=== PATIENT | male | born 1965 | race Two or more races ===

== ENCOUNTER → 2023-06-18 14:29 | Outpatient (REF) | payer MEDICAID, SELFPAY ==
--- NOTE | 2023-06-18 14:33 | HM_ITS ---
* Total monitoring time 3 days. * Underlying rhythm is sinus average rate of 74/Min. Range 49 to 111/Min. * Rare ventricular ectopy. [place] of 0.3%. Some of these could be supraventricular ectopy. * No significant pauses or AV blocks. * Palpitations in diary correlates with sinus rhythm/ectopy. MTDD
== END ==
LOC: HO.CARD 14:29
PROVIDERS: PCP Internal Medicine; Visit Provider Internal Medicine
DX: R00.2 Palpitations (principal)
CPT/HCPCS: 93242

== ENCOUNTER → 2023-06-18 14:33 | Outpatient (BNV) | payer MEDICAID, SELFPAY | PROVIDERS: PCP Internal Medicine; Visit Provider Internal Medicine | DX: R00.1 Bradycardia, unspecified (principal) | CPT/HCPCS: 93244 ==

== ENCOUNTER 2025-01-09 14:33 | Outpatient (AMB) | payer OTHER, SELFPAY ==
--- NOTE | 2025-01-09 14:34 | A.OFFPC_ITS ---
Vital Signs 01/09/25 14:36 Height 5 ft 4.29 in Weight 156 lb 4 oz BMI 26.6 BP 121/72 Blood Pressure Location Rt brachial Position Sitting Pulse 94 Pulse Source Pulse Oximeter Temp 97.3 F Temp Source Temporal Artery Scan Pulse Oximetry (%) 97 Oxygen Delivery Method Room Air Intake Visit Reasons: establish care House Mother Required: No Accompanied by: Self / Same As Patient Allergies No Known Allergies Allergy (Verified 01/09/25 14:56) Medication List - Last Reconciled 01/09/25 by Stella Francois PA-C ezetimibe 10 mg PO DAILY ibuprofen 600 mg PO BID lisinopril 5 mg PO DAILY rosuvastatin 10 mg PO BEDTIME tramadol 50 mg PO BID Tobacco use date assessed: 01/09/25 Dental Screening Dental Screen Date: 01/09/25 Did you have a dental visit in the last 12 months?: Yes HPI establish care HPI Details The patient is a 59-year-old male presenting for new patient appointment as he was a patient of Dr. Luna presenting with chronic pain and cardiovascular evaluation. The patient has a history of degenerative disc disease, causing pain radiating to the shoulders and persistent hand pain, particularly affecting his right thumb. 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 He manages his pain with ibuprofen 600 mg twice daily and tramadol as needed, depending on pain severity. The patient has been diagnosed with essential hypertension and hyperlipidemia, managed with lisinopril 5 mg, rosuvastatin 10 mg, and ezetimibe 10 mg. He has not had blood work in the past three years, despite a history of regular monitoring while living in [place]. During the examination, a possible heart murmur was detected, prompting consideration for an echocardiogram to establish a baseline. 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 - Exercise: Practices yoga and performs hand exercises. - Dietary Habits: Does not consume red m eat, pork, or chicken; takes iron supplements. [facility] Medical History (Updated 01/09/25 @ 17:00 by Stella Francois PA-C) Encounter for preventive care Hyperlipidemia Hypertension Heart murmur Chronic pain Pain of right thumb Family History Mother Cardiovascular disease Diabetes Father Thyroid condition Social History Housing: House Patient Tobacco Use Status: Former Tobacco user service: No Current occupational status: employed Cognitive needs: No Hearing needs: No Vision needs: Yes (rx glasses) Questionnaire PHQ-9 Over the last 2 weeks, how often have you been bothered by any of the following problems? 1. Little interest or pleasure in doing things: not at all 2. Feeling down, depressed, or hopeless: not at all 3. Trouble falling or staying asleep, or sleeping too much: not at all 4. Feeling tired or having little energy: not at all 5. Poor appetite or overeating: not at all 6. Feeling bad about yourself - or that you are a failure or have let yourself or your family down: not at all 7. Trouble concentrating on things, such as reading the newspaper or watching television: not at all 8. Moving or speaking so slowly that other people could have noticed. Or the opposite - being so fidgety or restless that you have been moving around a lot more than usual: not at all 9. Thoughts that you would be better off or of hurting yourself in some way: not at all Total score: 0 Depression Screening Interpretation: Negative Depression Screening Done: Yes 10410 - PHQ-9 Billing: Yes Source: Developed by Drs. Chris Blas, Jayshree Davis, Nehemias Mathis and colleagues, with an educational soledad from [employer]. Thrive Questionnaire Date Thrive assessed: 01/09/25 I am a: Patient What is your living situation today?: I have a steady place to live Within the past 12 months, did the food you bought not last and you didn't have the money to get more?: Never true Within the past 12 months, did you worry whether your food would run out before you got money to buy more?: Never true Do you have trouble paying for medicines?: No Do you have trouble getting transportation to medical appointments?: Yes Do you have trouble paying your heating and electricity bill?: No Do you have trouble taking care of your child, family member or friend?: No Do you have trouble with day-to-day activities such as bathing, preparing meals, shopping, managing finances, etc.?: No Are you currently unemployed and looking for a job?: No Are you interested in more education?: No THRIVE Score: 1 AUDIT C Alcohol Use Questionnaire (AUDIT-C) 1. How often do you have a drink containing alcohol?: Monthly or less 2. How many drinks containing alcohol do you have on a typical day when you are drinking?: 1 or 2 3. How often do you have six or more drinks on one occasion?: Never Total Score: 1 Score Reviewed/Action Taken: No REHANA-7 AMB Questionnaire REHANA-7 Date REHANA - 7 assessed: 01/09/25 Feeling nervous, anxious, or on edge: 0 = Not at all Not being able to stop or control worryin = Not at all Worrying too much about different things: 0 = Not at all Trouble relaxin = Not at all Being so restless that it is hard to sit still: 0 = Not at all Becoming easily annoyed or irritable: 0 = Not at all Feeling afraid as if something awful might happen: 0 = Not at all Total REHANA-7 score (0-4 normal; 5-9 mild; 10-14 moderate; 15-21 severe): 0 Source: Developed by Drs. Chris Blas, Jayshree Davis, Nehemias Mathis and colleagues, with an educational soledad from [employer]. REHANA-7 Assessment Billing REHANA-7 Assessment Tool: REHANA-7 Assessment 04830 Review of Systems Const Details: - Musculoskeletal: Reports chronic pain in hands and shoulders. - Cardiovascular: Denies chest pain, dyspnea, or orthopnea. All systems reviewed & are unremarkable except as noted in HPI and below Physical exam (Primary Care) Vital Signs: Last Vital Signs Temp 97.3 F 01/09/25 14:36 Pulse 94 01/09/25 14:36 BP 121/72 01/09/25 14:36 Pulse Ox 97 01/09/25 14:36 Oxygen Delivery Method Room Air 01/09/25 14:36 Care Plan Goal for BP management: <140/90 at Goal BMI result Body Mass Index 26.6 BMI Assessment/Plan discussion: High BMI High, discussed plan: lifestyle, weight reduction, dietary, physical activity, alcohol moderation and other Tobacco/Smoking Status: Tobacco use Status Tobacco use date assessed 01/09/25 01/09/25 14:44 Patient Tobacco Use Status Former Tobacco user 01/09/25 14:44 PHQ-9: PHQ-9 Score PHQ-9: Total score 0 01/09/25 14:57 Depression Screening Interpretation: Negative Thrive Assessment: Date of Thrive Assessment Date Thrive assessed 01/09/25 01/09/25 14:44 Const Other: Appearance: Alert. Oriented X3. No acute distress. Head: Normal external exam. Normocephalic. Atraumatic. Eyes: Pupils are equal, round, and reactive to light. Extraocular movements intact. Conjunctiva and sclera normal. Eyelids normal. Ears: External auditory canal normal. Tympanic membranes normal. Throat: Pharynx normal. Uvula midline. Moist mucous membranes. Neck: Normal inspection. Neck supple. Full range of motion. No adenopathy. Thyroid Normal. No meningeal signs. No neck mass noted. Cardiovascular: Normal heart rate and rhythm. Heart sound normal. Slight murmur noted. Pulses normal throughout. Respiratory: No respiratory distress. Painless inspiration. Breath sounds normal. No wheezes/rales/rhonchi noted. Chest nontender. No accessory muscle usage noted or decreased air movement noted. Abdomen: Soft and nontender. Bowel sounds normal in all 4 quadrants. No distention noted. No organomegaly noted. No visible injury noted. Back: No costovertebral angle tenderness. Full range of motion noted. Skin: Skin warm and dry. Normal skin color. Normal skin turgor. No rashes/lesions/lacerations noted. Extremities: No lower extremity edema. Extremities exhibit normal range of motion. Extremities nontender. Neuro: Oriented X 3. No motor deficit. No sensory deficit. Reflexes normal. Office Procedures Flu Questionnaire Does the patient have a severe egg allergy?: No Does the patient have severe life threatening allergies?: No Does the patient have a fever or illness today?: No Has the patient ever had Guillain-[place] Syndrome?: No Has the patient ever had any past reaction to a flu shot?: No Immunizations Fluarix [id number] (PF) 45 mcg (15 mcg x 3)/0.5 mL IM syringe Performing Provider: Stella Francois PA-C [facility] Documented (not given) by: Yahaira Matthews CMA on 01/09/25 14:46 Reason Not Given: Received Previously Coding Level of Care Code New Pt Level 4 (40059) New Pt Prev Care 40-64y(52379) Diagnoses Chronic pain G89.29 Hypertension I10 Hyperlipidemia E78.5 Heart murmur R01.1 Encounter for preventive care Z00.00 Additional Codes REHANA-7 Assessment Billing - REHANA-7 Assessment Tool: REHANA-7 Assessment 82449 ([id number]) PHQ-9 - 27535 - PHQ-9 Billing: Yes ([id number]) Assessment & Plan Assessment & Plan (1) Chronic pain: Code(s): G89.29 - Other chronic pain Category: Medical Plan: The patient will be placed on a pain management contract, reducing tramadol to once daily, with regular drug urine screens and pill counts. A referral to an orthopedist has been made for further evaluation of hand pain, and the patient is encouraged to continue yoga and hand exercises. (2) Hypertension: Code(s): I10 - Essential (primary) hypertension Category: Medical Plan: The patient's blood pressure is currently managed with lisinopril 5 mg daily, and no changes to this regimen were discussed during the visit. (3) Hyperlipidemia: Code(s): E78.5 - Hyperlipidemia, unspecified Category: Medical Plan: The patient continues on rosuvastatin 10 mg and ezetimibe 10 mg for hyperlipidemia management, with plans for comprehensive blood work to monitor lipid levels. (4) Heart murmur: Code(s): R01.1 - Cardiac murmur, unspecified Category: Medical Plan: An echocardiogram is recommended to evaluate the detected heart murmur and establish a baseline for future comparison. (5) Encounter for preventive care: Code(s): Z00.00 - Encounter for general adult medical examination without abnormal findings Category: Medical Plan: Comprehensive blood work is ordered, including CBC, CMP, cholesterol panel, and other relevant tests, to assess overall health and monitor chronic conditions. Plan Plan Patient was informed and verbally consented to the use of an ambient scribe for clinic note documentation during this visit. 1. Chronic Pain The patient will be placed on a pain management contract, reducing tramadol to once daily, with regular drug urine screens and pill counts. A referral to an orthopedist has been made for further evaluation of hand pain, and the patient is encouraged to continue yoga and hand exercises. 2. Essential Hypertension The patient's blood pressure is currently managed with lisinopril 5 mg daily, and no changes to this regimen were discussed during the visit. 3. Hyperlipidemia The patient continues on rosuvastatin 10 mg and ezetimibe 10 mg for hyperlipidemia management, with plans for comprehensive blood work to monitor lipid levels. 4. Possible Heart Murmur An echocardiogram is recommended to evaluate the detected heart murmur and establish a baseline for future comparison. 5. Preventative Care Comprehensive blood work is ordered, including CBC, CMP, cholesterol panel, and other relevant tests, to assess overall health and monitor chronic conditions. During the visit, I discussed the importance of managing chronic pain through a structured pain management contract, which includes reducing tramadol usage and regular monitoring through drug urine screens and pill counts. I explained the need for an echocardiogram to evaluate the detected heart murmur and emphasized the importance of comprehensive blood work to monitor the patient's chronic conditions. Orders: Orders C Reactive Protein Today Z00.00 - Encounter for general adult medical examination without abnormal findings Vitamin D 25-OH Total Today Z00.00 - Encounter for general adult medical examination without abnormal findings UA CC w/rflx Micro + Cult Today Z00.00 - Encounter for general adult medical examination without abnormal findings Drug Screen Urine Today G89.29 - Other chronic pain Ferritin Today D64.9 - Anemia, unspecified Influenza 2230-0032 Immunization Today Z23 - Encounter for immunization Complete Blood Count Auto Diff Today Z00.00 - Encounter for general adult medical examination without abnormal findings Comprehensive [place]. Panel Fast Today Z00.00 - Encounter for general adult medical examination without abnormal findings Hemoglobin A1c Today Z00.00 - Encounter for general adult medical examination without abnormal findings Lipid Panel Today Z00.00 - Encounter for general adult medical examination without abnormal findings Magnesium Today Z00.00 - Encounter for general adult medical examination without abnormal findings Liver Panel Today Z00.00 - Encounter for general adult medical examination without abnormal findings Vitamin B12 and Folate Today Z00.00 - Encounter for general adult medical examination without abnormal findings TSH reflex Free T4 Today Z00.00 - Encounter for general adult medical examination without abnormal findings PSA,Total (Free>4and<10) Today Z00.00 - Encounter for general adult medical examination without abnormal findings CA echo transthoracic complete Today R01.1 - Cardiac murmur, unspecified IRON PROFILE Today D64.9 - Anemia, unspecified Testosterone, Free/Total Today Z00.00 - Encounter for general adult medical examination without abnormal findings DHEA Sulfate Today Z00.00 - Encounter for general adult medical examination without abnormal findings Dihydrotestosterone Today Z00.00 - Encounter for general adult medical examination without abnormal findings Referrals Pain Management Referral G89.29 - Other chronic pain Orthopedics Referral M79.644 - Pain in right finger(s) Patient Instructions: - Follow the pain management contract, including taking tramadol once daily and attending regular appointments for drug urine screens and pill counts. - Attend the scheduled appointment with the orthopedist for hand pain evaluation. - Continue practicing yoga and hand exercises to manage pain. - Complete the comprehensive blood work as ordered, ensuring to fast as required. - Schedule and attend the echocardiogram to evaluate the heart murmur.
[2025-01-09 14:36] VITALS: BP 121/72; PULSE 94; TEMP 36.3; O2SAT 97; BMI 26.6
--- OUTSIDE RECORDS SUMMARY | 2025-01-09 17:44 | XMS_ITS | Patient Health Record ---
Author Organization [facility] Address [address] [facility] [place] [address] Care Team Providers Care Aviation Engineer Name Role Phone Shira Hester Primary Care Provider Unavailab Derrek Abraham Unavailable [phone] Reason For Referral No Information Medications Medication SIG (Take, Route, Frequency, Duration) Notes Start Date End Date Status Pravastatin Sodium 40 MG 1 tablet Orally Once a day Active Lisinopril 10 MG 1 tablet Orally Once a day Active Ibuprofen 600 MG 1 tablet with food o r milk Orally Three times a day Active Social History Tobacco Use: Social History Observation Description Date Details (start date - stop date) Never Smoker NA - NA Tobacco Use/Smoking Question Answer Notes Are you a nonsmoker Alcohol Screen Question Answer Notes Did you have a drink contain ing alcohol in the past year? Yes Points 4 Interpretation Positive How often did you have 6 or more drinks on one occasion in the past year? Never (0 point) How many drinks did you have on a typical day when you were drinking in the past year? 1 or 2 drinks (0 point) How often did you have a dri nk containing alcohol in the past year? 4 or more times a week (4 points) Problems Problem Type SNOMED Code ICD Code Onset Dates Problem Status W/U Status Risk Notes Problem Carpal tunnel syndrome (17295915) Carpal tunnel syndrome, bilateral upper limbs (G56.03) Active confirmed Problem Lesion of ulnar nerve ([id number]) Lesion of ulnar nerve, bilateral upper limbs (G56.23) Active confirmed Plan Of Treatment No Information Insurance Providers Payer Name Payer Address Payer Phone Subscriber Number Group Number Insured Name Patient Relationship to Insured Coverage Start Date Coverage End Date [facility] [address] LEESA Guerrero [id number] Mark Altamirano Self - patient is the insured Medical (General) History Medical History History ICD Code htn hld kidney stones
== END 2025-01-09 15:21 | disposition home or self-care (01) ==
LOC: HO.HMCSH 14:33
PROVIDERS: PCP Physician Assistant Medical; Visit Provider Physician Assistant Medical
DX: Z00.00 Encounter for general adult medical examination without abnormal findings (principal); G89.29 Other chronic pain; I10 Essential (primary) hypertension; E78.5 Hyperlipidemia, unspecified; R01.1 Cardiac murmur, unspecified; Z23 Encounter for immunization

== ENCOUNTER → 2025-01-09 14:33 | Outpatient (BNVA) | payer OTHER, SELFPAY | PROVIDERS: PCP Physician Assistant Medical; Visit Provider Physician Assistant Medical | DX: Z00.00 Encounter for general adult medical examination without abnormal findings (principal); I10 Essential (primary) hypertension; E78.5 Hyperlipidemia, unspecified; G89.29 Other chronic pain; D64.9 Anemia, unspecified; M79.644 Pain in right finger(s) | CPT/HCPCS: 96127; 99202; 99386 ==

== ENCOUNTER 2025-01-11 06:19 | Outpatient (REF) | payer OTHER, SELFPAY ==
--- OUTSIDE RECORDS SUMMARY | 2025-01-11 06:23 | XMS_ITS | Patient Health Record ---
Author Organization [facility] Address [address] [facility] [address] [address] [facility] [address] [facility] [address] [place] [address] Care Team Providers Care Radio Commentator Name Role Phone Shira Hester Primary Care Provider Unavailab Derrek Abraham Unavailable [phone] Reason For Referral No Information Medications Medication [...] Status Risk Notes Problem Carpal tunnel syndrome (57418413) Carpal tunnel syndrome, bilateral upper limbs (G56.03) Active confirmed Problem Lesion of ulnar nerve (573691027) Lesion of ulnar nerve, bilateral upper limbs (G56.23) Active confirmed Plan Of Treatment No Information Insurance Providers Payer Name Payer Address Payer Phone Subscriber Number Group Number Insured Name Patient Relationship to Insured Coverage Start Date Coverage End Date [facility] [address] LEESA Guerrero [id number] Mark Altamirano Self - patient is the insured Medical (General) History Medical History History ICD Code htn hld kidney stones
[2025-01-11 10:19] LABS: MANUAL DIFF FLAG NO
[2025-01-11 10:31] LABS: Hematocrit 39.4 % (42.0-52.0); Hemoglobin 13.9 g/dl (14.0-18.0); Imm Gran Abs Auto 0.02 X10*3/uL (0.00-0.03); Imm Gran Pct Auto 0.4 % (0.0-0.4); Lymphocytes Absolute Auto 2.0 X10*3/uL (1.2-4.9); Mean Corpuscular HGB Conc 35.3 g/dl (31.0-36.0); Mean Corpuscular Hemoglobin 29.7 pg (27.0-33.0); Mean Corpuscular Volume 84.2 fL (80.0-98.0); NRBC Abs Auto 0.000 X10*3/uL (0.0-0.012); NRBC Pct Auto 0.0 /100WBC (0.0-0.2); Platelet Count 280 X10*3/uL (160-400); Red Blood Count 4.68 X10*6/uL (4.60-5.80); White Blood Count 5.0 X10*3/uL (4.8-10.8)
[2025-01-11 10:31] LABS: Appearance Urine Clear; Glucose Urine UA Negative (Negative); PH 8.5 (5.0-9.0); Specific Gravity - Urine 1.015 (1.005-1.025); UMIC TRIGGER UACC YES
[2025-01-11 10:36] LABS: Cannabinoid Screen Urine POSITIVE (Not Detect)
[2025-01-11 10:45] LABS: Total Hemoglobin (HGBA1C) 3567.6437 umol/L
[2025-01-11 11:11] LABS: PSA,Total (Free>4and<10) 0.89 ng/mL (0.00-4.00)
[2025-01-11 11:23] LABS: Alanine Aminotransferase 19 U/L (0-40); Albumin Level 5.0 g/dL (3.5-5.0); Alkaline Phosphatase 55 U/L (39-117); Anion Gap 11 (12-20); Aspartate Amino Transferase 28 U/L (5-37); Blood Urea Nitrogen 10 mg/dL (9-16); Calcium 9.4 mg/dL (8.4-10.2); Carbon Dioxide 29 mmol/L (22-29); Chloride 103 mmol/L (96-108); Cholesterol 144 mg/dL (<200); Estimated Glomerular Filt Rate > 60; Ferritin 113 ng/mL (20-250); HDL Cholesterol 36 mg/dL (>40); Iron 120 mcg/dL (45-160); Magnesium 2.1 mg/dL (1.6-2.6); Percent Iron Saturation 40 % (15-50); Potassium 4.2 mmol/L (3.3-5.1); Sodium 139 mmol/L (135-145); Total Iron Binding Capacity 300 mcg/dL (228-428); Total Protein 7.8 g/dL (6.5-8.0); Triglycerides 151 mg/dL (<150); Unsaturated Iron Binding 180 ug/dL
[2025-01-11 11:25] LABS: Folate 15.0 ng/mL (> or = 4.0); Vitamin B12 816 pg/mL (200-900)
[2025-01-18 17:44] LABS: Testosterone, Free 78.1 pg/mL (35.0-155.0)
== END 2025-01-11 06:20 | disposition home or self-care (01) ==
LOC: HO.HMGCLDS 06:19
PROVIDERS: PCP Physician Assistant Medical; Visit Provider Physician Assistant Medical
DX: Z00.00 Encounter for general adult medical examination without abnormal findings (principal); D64.9 Anemia, unspecified; G89.29 Other chronic pain
CPT/HCPCS: 80053; 80061; 80076; 80307; 81001; 82248; 82306; 82607; 82627; 82642; 82728; 82746; 83036; 83540; 83735; 84153; 84402; 84403; 84443; 85025; 86140

== ENCOUNTER 2025-02-06 14:52 | Outpatient (AMB) | payer OTHER, SELFPAY ==
[2025-02-06 14:56] VITALS: BP 138/82; PULSE 96; TEMP 36.6; O2SAT 96; BMI 26.6
--- NOTE | 2025-02-06 14:56 | A.OFFPC_ITS ---
Vital Signs 02/06/25 14:56 Height 5 ft 4.45 in Weight 157 lb 6 oz BMI 26.6 BP 138/82 Blood Pressure Location Rt brachial Position Sitting Pulse 96 Pulse Source Pulse Oximeter Temp 97.8 F Temp Source Temporal Artery Scan Pulse Oximetry (%) 96 Oxygen Delivery Method Room Air Intake Visit Reasons: 1 month follow up Api Architect Required: No Accompanied by: Self / Same As Patient Allergies No Known Allergies Allergy (Verified 02/06/25 15:29) Medication List - Last Reconciled 02/06/25 by Stella Francois PA-C ezetimibe 10 mg PO DAILY ibuprofen 600 mg PO BID lisinopril 5 mg PO DAILY rosuvastatin 10 mg PO BEDTIME tramadol 50 mg PO DAILY Tobacco use date assessed: 02/06/25 Dental Screening Dental Screen Date: 02/06/25 Did you have a dental visit in the last 12 months?: Yes HPI 1 month follow up HPI Details The patient is a 59-year-old male presenting with hypertension and chronic pain management. The patient reports a history of hypertension, with current blood pressure readings slightly elevated at 138/82 mmHg. He is currently on lisinopril 5 mg daily taking as prescribed. He has been on tramadol for chronic pain, initially taking it three times a day, but now reduced to daily and as needed due to adequate pain control. The patient has a history of a heart murmur, which was noted during auscultation but deemed not significant at this time. Patient has echocardiogram ordered as an outpatient. [facility] Medical History Encounter for preventive care Hyperlipidemia Hypertension Heart murmur Chronic pain Pain of right thumb Family History Mother Cardiovascular disease Diabetes Father Thyroid condition Social History Housing: House Patient Tobacco Use Status: Former Tobacco user service: No Current occupational status: employed Cognitive needs: No Hearing needs: No Vision needs: Yes (rx glasses) Questionnaire PHQ-9 Over the last 2 weeks, how often have you been bothered by any of the following problems? 1. Little interest or pleasure in doing things: not at all 2. Feeling down, depressed, or hopeless: not at all 3. Trouble falling or staying asleep, or sleeping too much: not at all 4. Feeling tired or having little energy: not at all 5. Poor appetite or overeating: not at all 6. Feeling bad about yourself - or that you are a failure or have let yourself or your family down: not at all 7. Trouble concentrating on things, such as reading the newspaper or watching television: not at all 8. Moving or speaking so slowly that other people could have noticed. Or the opposite - being so fidgety or restless that you have been moving around a lot more than usual: not at all 9. Thoughts that you would be better off or of hurting yourself in some way: not at all Total score: 0 Depression Screening Interpretation: Negative Depression Screening Done: Yes 72931 - PHQ-9 Billing: Yes Source: Developed by Drs. Chris Blas, Jayshree Davis, Nehemias Mathis and colleagues, with an educational soledad from [employer]. Thrive Questionnaire Date Thrive assessed: 02/06/25 I am a: Patient What is your living situation today?: I have a steady place to live Within the past 12 months, did the food you bought not last and you didn't have the money to get more?: Never true Within the past 12 months, did you worry whether your food would run out before you got money to buy more?: Never true Do you have trouble paying for medicines?: No Do you have trouble getting transportation to medical appointments?: Yes Do you have trouble paying your heating and electricity bill?: No Do you have trouble taking care of your child, family member or friend?: No Do you have trouble with day-to-day activities such as bathing, preparing meals, shopping, managing finances, etc.?: No Are you currently unemployed and looking for a job?: No Are you interested in more education?: No THRIVE Score: 1 AUDIT C Alcohol Use Questionnaire (AUDIT-C) 1. How often do you have a drink containing alcohol?: Monthly or less 2. How many drinks containing alcohol do you have on a typical day when you are drinking?: 1 or 2 3. How often do you have six or more drinks on one occasion?: Never Total Score: 1 Score Reviewed/Action Taken: No REHANA-7 AMB Questionnaire REHANA-7 Date REHANA - 7 assessed: 02/06/25 Feeling nervous, anxious, or on edge: 0 = Not at all Not being able to stop or control worryin = Not at all Worrying too much about different things: 0 = Not at all Trouble relaxin = Not at all Being so restless that it is hard to sit still: 0 = Not at all Becoming easily annoyed or irritable: 0 = Not at all Feeling afraid as if something awful might happen: 0 = Not at all Total RHEANA-7 score (0-4 normal; 5-9 mild; 10-14 moderate; 15-21 severe): 0 Source: Developed by Drs. Chris Blas, Jayshree Davis, Nehemias Mathis and colleagues, with an educational soledad from [employer]. REHANA-7 Assessment Billing REHANA-7 Assessment Tool: REHANA-7 Assessment 66949 Review of Systems Const Details: - Cardiovascular: Reports hypertension. Denies chest pain or palpitations. - Musculoskeletal: Reports chronic pain, managed with tramadol as needed. All systems reviewed & are unremarkable except as noted in HPI and below Physical exam (Primary Care) Vital Signs: Last Vital Signs Temp 97.8 F 02/06/25 14:56 Pulse 96 02/06/25 14:56 BP 141/71 H 02/06/25 14:56 Pulse Ox 96 02/06/25 14:56 Oxygen Delivery Method Room Air 02/06/25 14:56 Care Plan Goal for BP management: <140/90 BMI result Body Mass Index 26.6 BMI Assessment/Plan discussion: High BMI High, discussed plan: lifestyle, weight reduction, dietary, physical activity, alcohol moderation and other Tobacco/Smoking Status: Tobacco use Status Tobacco use date assessed 02/06/25 02/06/25 14:57 Patient Tobacco Use Status Former Tobacco user 02/06/25 14:56 PHQ-9: PHQ-9 Score PHQ-9: Total score 0 02/06/25 15:03 Depression Screening Interpretation: Negative Thrive Assessment: Date of Thrive Assessment Date Thrive assessed 02/06/25 02/06/25 14:57 Const Other: Appearance: Alert. Oriented X3. No acute distress. Head: Normal external exam. Normocephalic. Atraumatic. Eyes: Pupils are equal, round, and reactive to light. Extraocular movements intact. Conjunctiva and sclera normal. Eyelids normal. Throat: Pharynx normal. Uvula midline. Moist mucous membranes. Neck: Normal inspection. Neck supple. Full range of motion. Cardiovascular: Normal heart rate and rhythm. Heart sound normal. Slight murmur noted. Pulses normal throughout. Respiratory: No respiratory distress. Painless inspiration. Back: Full range of motion noted. Skin: Skin warm and dry. Normal skin color. Extremities: Extremities exhibit normal range of motion. Office Procedures Flu Questionnaire Does the patient have a severe egg allergy?: No Does the patient have severe life threatening allergies?: No Does the patient have a fever or illness today?: No Has the patient ever had Guillain-[place] Syndrome?: No Has the patient ever had any past reaction to a flu shot?: No Office Meds naloxone 4 mg/actuation nasal spray Performing Provider: Stella Francois PA-C Performing Location: [facility] Administered by: Stella Francois PA-C on 02/06/25 15:41 Dose Route Admin Location Dispensed Lot Number Expiration Date [facility] Senior Master Scheduler 4 mg intranasal 1 ea Total Dispensed Waste 1 ea 0 % Comments: to take home due to on chronic pain medications Immunizations Fluarix [id number] (PF) 45 mcg (15 mcg x 3)/0.5 mL IM syringe Performing Provider: Stella Francois PA-C Performing Location: [facility] Adult Primary [facility] Documented (not given) by: Yahaira Matthews CMA on 02/06/25 15:06 Reason Not Given: Received Previously Coding Level of Care Code Est Pt Level 4 (07672) Complex EM visit Add On G2211 Diagnoses Hypertension I10 Chronic pain G89.29 Heart murmur R01.1 Additional Codes REHANA-7 Assessment Billing - REHANA-7 Assessment Tool: REHANA-7 Assessment 61941 ([id number]) PHQ-9 - 09710 - PHQ-9 Billing: Yes ([id number]) Assessment & Plan Assessment & Plan (1) Hypertension: Code(s): I10 - Essential (primary) hypertension Category: Medical Plan: The patient's blood pressure was measured at 138/82 mmHg, which is slightly elevated. The plan includes monitoring blood pressure, continue lisinopril 5 mg daily and adjusting lifestyle factors as needed. (2) Chronic pain: Code(s): G89.29 - Other chronic pain Category: Medical Plan: The patient is currently managing chronic pain with tramadol, taken daily as needed. The prescription for tramadol will be refilled with two additional refills provided. Patient will return in 3 months. A pain contract sign. Patient passed drug urine screen. Patient received Narcan to take home today. (3) Heart murmur: Code(s): R01.1 - Cardiac murmur, unspecified Category: Medical Plan: The patient is currently managing chronic pain with tramadol, taken as needed. The prescription for tramadol will be refilled with two additional refills provided. Plan Plan Patient was informed and verbally consented to the use of an ambient scribe for clinic note documentation during this visit. 1. Hypertension The patient's blood pressure was measured at 138/82 mmHg, which is slightly elevated. The plan includes monitoring blood pressure, continue lisinopril 5 mg daily and adjusting lifestyle factors as needed. 2. Chronic Pain The patient is currently managing chronic pain with tramadol, taken as needed. The prescription for tramadol will be refilled with two additional refills provided. 3. Heart Murmur A heart murmur was noted during auscultation, but it is not considered signific ant at this time. No immediate intervention is required, but monitoring will continue. During the visit, we discussed the management of hypertension and chronic pain. The patient was advised to monitor blood pressure regularly and adjust lifestyle factors as needed. We also reviewed the use of tramadol for pain management, with a plan to refill the prescription and provide two additional refills. The heart murmur was noted but deemed not significant, requiring no immediate intervention. Follow-up was scheduled for three months unless symptoms change. Orders: Orders Influenza [id number] Immunization Today Z23 - Encounter for immunization AMB Naloxone Hydrochloride Administration Today G89.29 - Other chronic pain Medications: Refilled tramadol 50 mg PO DAILY 30 tabs 2RF Patient Instructions: - Monitor blood pressure regularly and report any significant changes. - Take tramadol as needed for pain, not exceeding the prescribed dosage. - Follow up in three months or sooner if symptoms change.
--- OUTSIDE RECORDS SUMMARY | 2025-02-06 20:03 | XMS_ITS | Patient Health Record ---
Author Organization [facility] Address [address] [facility] [address] [facility] [address] [place] [address] Care Team Providers Care Supervisor [place] Name Role Phone Shira Hester Primary Care Provider Unavailab Derrek Abraham Unavailable [phone] Reason For Referral No Information Medications Medication [...] Status Risk Notes Problem Carpal tunnel syndrome ([id number]) Carpal tunnel syndrome, bilateral upper limbs (G56.03) Active confirmed Problem Lesion of ulnar nerve ([id number]) Lesion of ulnar nerve, bilateral upper limbs (G56.23) Active confirmed Plan Of Treatment No Information Insurance Providers Payer Name Payer Address Payer Phone Subscriber Number Group Number Insured Name Patient Relationship to Insured Coverage Start Date Coverage End Date [facility] [address] LEESA Guerrero [id number] [phone] [id number] Mark Altamirano Self - patient is the insured Medical (General) History Medical History History ICD Code htn hld kidney stones
== END 2025-02-06 15:28 | disposition home or self-care (01) ==
LOC: HO.HMCSH 14:52
PROVIDERS: PCP Internal Medicine; Visit Provider Physician Assistant Medical
DX: I10 Essential (primary) hypertension (principal); G89.29 Other chronic pain; R01.1 Cardiac murmur, unspecified; Z23 Encounter for immunization

== ENCOUNTER → 2025-02-06 14:52 | Outpatient (BNVA) | payer OTHER, SELFPAY | PROVIDERS: PCP Internal Medicine; Visit Provider Physician Assistant Medical | DX: I10 Essential (primary) hypertension (principal); G89.29 Other chronic pain; R01.1 Cardiac murmur, unspecified; Z79.891 Long term (current) use of opiate analgesic; Z79.899 Other long term (current) drug therapy; Z13.31 Encounter for screening for depression; Z13.39 Encounter for screening examination for other mental health and behavioral disorders | CPT/HCPCS: 90471; 96127; 99212 ==

== ENCOUNTER → 2025-02-13 12:38 | Outpatient (REF) | payer OTHER, SELFPAY ==
--- NOTE | 2025-02-13 12:42 | CA_ITS ---
Transthoracic Echocardiogram Patient (Last, First, Middle): Mark Whitehead, Gender: M Date of : 1965 Age: 59 Procedure Date: 02/13/2025 Procedure Type: Transthoracic Echocardiogram Location: OP Height: 160.02 cm Weight: 70.76 kg BSA: 1.74 m2 Heart Rate: bpm BP: 140 / 80 mmHg Asthma Educator: TO Referring MD: Stella Francois PA-C Symptoms: R01.1 - Cardiac murmur, unspecified Study Quality: Adequate ECG Rhythm: Sinus Conclusions: - The left ventricular systolic function is normal. The calculated ejection fraction is 60% by biplane method. - No obvious valvular pathology seen on this study. Findings Left Ventricle Normal left ventricular cavity size. The left ventricular systolic function is normal. The calculated ejection fraction is 60% by biplane method. There is no evidence of regional wall motion abnormalities. Diastolic function is normal for age. There is mild septal asymmetric hypertrophy. Right Ventricle Normal right ventricular cavity size. There is mildly decreased right ventricular systolic function. Atria Both atria are normal in size. Aortic Valve There is mild calcification of the aortic valve. There is no aortic valve stenosis. There is no aortic valve regurgitation. Mitral Valve The mitral valve appears normal. There is no mitral valve regurgitation. There is no mitral valve stenosis. Pulmonic Valve The pulmonic valve is likely normal. Tricuspid Valve There is no tricuspid valve regurgitation. Tricuspid regurgitation envelope is inadequate for calculation of right ventricular systolic pressure. Great Vessels The asc aorta is normal in size. Small plaque is seen in the sino tubular ridge. Venous The inferior vena cava is normal in size and collapses greater than 50% with inspiration. Pericardium/Pleural There is no evidence of pericardial effusion. Prior Study Comparison No prior study available for comparison. Recommendations, Care & Conclusions No obvious valvular pathology seen on this study. Measurements 2D Linear Measurements IVSd: 1.04 0.6-0.9/0.6-1.0 cm LVIDd: 4.29 3.9-5.3/4.2-5.9 cm LVIDd Index: 2.47 2.4-3.2/2.2-3.1 cm/m2 LVIDs: 2.99 2.0-3.6 cm LVPWd: 0.87 0.7-1.1 cm LA Diam: 2.80 2.7-3.8/3.0-4.0 cm LAIDs Index: 1.61 1.5-2.3 cm/m2 LV Mass: 166.11 67-162/88-224 g LV Mass Index: 95.47 43-95/49-115 g/m2 LVOT Diam: 2.20 3.0+(-)1.3 cm 2D Systolic Function EF 4C: 61.90 >55% EF 2C: 59.00 >55% EF BiP: 60.40 >55% Mitral Valve MV Pk E: 0.84 MV PK A: 0.78 MV Decel Time: 231.00 E/A: 1.10 E'Lateral: 7.62 E'Medial: 6.53 E/E' Med: 12.80 E/E' Lat: 11.00 PHT: 68.00 MVA PHT: 3.24 Decel [place]: 3.61 Aortic Valve AoV Pk Zay: 1.36 AoV Mn Zay: 0.90 AoV VTI: 0.25 AoV Pk Grad: 7.00 Aov Mn Grad: 4.00 RADHA Cont.VTI: 2.40 LVOT LVOT Pk Zay: 0.84 LVOT Mn Zay: 0.55 LVOT VTI: 0.16 LVOT Pk Grad: 3.00 LVOT Mn Grad: 1.00 LVOT Diam: 2.20 LVOT Area: 3.80 Diastolic Function MV Pk E: 0.84 MV Pk A: 0.78 E/A: 1.10 E'Medial: 6.53 E/E' Med: 12.80 E' Laterial: 7.62 E/E' Lat: 11.00 Right Ventricle TAPSE (mm): 17.10 TVS' Zay: 9.03 Tricuspid Valve RA Press: 3.00 Great Vessels Aorta Sinus of Valsalva: 3.58 2.0-3.5 cm Ao Asc: 3.10 2.1-3.4 cm Updated in Other Vendor System with Status of Final Eric Servin MD electronically signed on 02/14/2025 11:19:18 AM with status of Final
--- OUTSIDE RECORDS SUMMARY | 2025-02-13 15:54 | XMS_ITS | Patient Health Record ---
Author Organization [facility] Address [address] [facility] [address] [facility] [address] [place] [address] Care Team Providers Care Prize Fighter Name Role Phone Shira Hester Primary Care Provider Unavailab Derrek Abraham Unavailable [phone] Reason For Referral No Information Medications Medication [...] Status Risk Notes Problem Carpal tunnel syndrome ([id number]) Carpal tunnel syndrome, bilateral upper limbs (G56.03) Active confirmed Problem Lesion of ulnar nerve ([id number]) Lesion of ulnar nerve, bilateral upper limbs (G56.23) Active confirmed Plan Of Treatment No Information Insurance Providers Payer Name Payer Address Payer Phone Subscriber Number Group Number Insured Name Patient Relationship to Insured Coverage Start Date Coverage End Date [facility] [address] LEESA Guerrero [id number] Mark Altamirano Self - patient is the insured Medical (General) History Medical History History ICD Code htn hld kidney stones
== END ==
LOC: HO.CARD 12:38
PROVIDERS: PCP Internal Medicine; Visit Provider Physician Assistant Medical
DX: R01.1 Cardiac murmur, unspecified (principal)
CPT/HCPCS: 93306

== ENCOUNTER → 2025-02-13 12:42 | Outpatient (BNV) | payer OTHER, SELFPAY | PROVIDERS: PCP Internal Medicine; Visit Provider Internal Medicine | DX: I42.2 Other hypertrophic cardiomyopathy (principal); R01.1 Cardiac murmur, unspecified | CPT/HCPCS: 93306 ==

== ENCOUNTER 2025-03-21 10:09 | Outpatient (REF) | payer OTHER, SELFPAY ==
--- NOTE | ~2025-03-21 | XR_ITS ---
EXAMINATION: XR HAND 3 OR MORE VIEWS RIGHT HISTORY: M79.641 - Pain in right hand COMPARISON: There are no prior studies available for comparison. FINDINGS: Three views of the right hand are submitted. Osseous mineralization is normal. There is no fracture or dislocation. The joint spaces are preserved. The soft tissues are unremarkable. XR/XR hand RT min 3V IMPRESSION: Unremarkable examination of the right hand. Electronically signed by: Chris Yan MD 03/21/2025 10:45 AM LALI
--- OUTSIDE RECORDS SUMMARY | 2025-03-22 12:10 | XMS_ITS | Patient Health Record ---
Author Organization [facility] Address [address] [facility] [address] [facility] [address] [place] [address] Care Team Providers Care Mobile Product Manager Name Role Phone Shira Hester Primary Care Provider Unavailab Derrek Abraham Unavailable [phone] Reason For Referral No Information Medications Medication [...] Status Risk Notes Problem Carpal tunnel syndrome ([id number]) Carpal tunnel syndrome, bilateral upper limbs (G56.03) Active confirmed Problem Lesion of ulnar nerve ([id number]) Lesion of ulnar nerve, bilateral upper limbs (G56.23) Active confirmed Plan Of Treatment No Information Insurance Providers Payer Name Payer Address Payer Phone Subscriber Number Group Number Insured Name Patient Relationship to Insured Coverage Start Date Coverage End Date [facility] [address] LEESA Guerrero [id number] Mark Altamirano Self - patient is the insured Medical (General) History Medical History History ICD Code htn hld kidney stones
== END 2025-03-21 10:10 | disposition home or self-care (01) ==
LOC: HO.HOSX 10:09
DX: M65.311 Trigger thumb, right thumb (principal)
CPT/HCPCS: 20550; 73130; 99202; J1100; J2003

== ENCOUNTER 2025-03-21 10:28 | Outpatient (AMB) | payer OTHER, SELFPAY ==
[2025-03-21 10:39] VITALS: BMI 26.6
--- NOTE | 2025-03-21 10:39 | MHC.OFFVIS ---
Vital Signs 03/21/25 10:39 Height 5 ft 4.45 in Weight 157 lb BMI 26.6 Intake Visit Reasons: New Patient - Right Thumb Pain Intake Note: Mark is a 59 year old right hand dominant male who presents today as a New Patient for evaluation of his Right Thumb Pain. 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 He takes Ibuprofen BID and Tramadol PRN for pain, currently, on a pain management contract with his PCP. Patient complains of right thumb locking and catching. He also complains of bilateral thumb nodules , at his IP joints. He denies any numbness or tingling. He reports history of right middle trigger finger for which he's received cortisone injections. Patient is interested in a trigger thumb injection today. Denies previous injuries or surgeries to the right hand. Patient has a history of hypoglycemia. Allergies No Known Allergies Allergy (Verified 03/21/25 10:43) HPI HPI New Patient - Right Thumb Pain: Details: Mark is a 59 year old right hand dominant male who presents today as a New Patient for evaluation of his Right Thumb Pain. Patient states that this pain is associated with locking and catching of the right thumb in a flexed position, and that this is very similar to previous issues with the right middle finger trigger finger. 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 He takes Ibuprofen BID and Tramadol PRN for pain, currently, on a pain management contract with his PCP. Patient complains of right thumb locking and catching. He also complains of bilateral thumb nodules , at his IP joints. He denies any numbness or tingling. He reports history of right middle trigger finger for which he's received cortisone injections. Patient is interested in a trigger thumb injection today. Denies previous injuries or surgeries to the right hand. Patient has a history of hypoglycemia. 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 Neuro: Normal sensation of the tips of all digits of the right hand at this time Vascular: Cap refill brisk Pain: Tenderness to palpation of the A1 naima of right thumb Pain associated with locking and catching of the right thumb ROM: There is visible and palpable locking and catching of the right thumb in a flexed position Patient does have some difficulty with movement of the right thumb, and states he feels this is stiff Skin: No lacerations or abrasions. General: No ecchymosis, erythema, or evidence of infection. Psych: Appears grossly normal Affect normal Attitude cooperative Office Procedures AMB Tendon Injection Tendon Injection 17616-Rwnxya Tendon Sheath Injection All charges added?: Procedure code (CPT) selection complete Assessment & Plan Assessment & Plan (1) Trigger thumb, right thumb: Code(s): M65.311 - Trigger thumb, right thumb Category: Medical Plan 1. Right trigger thumb Patient is educated about the condition Patient is educated about the typical treatment course Patient would like to proceed with steroid injection at this time The risks and benefits of a steroid injection including but not limited to risk of damage to blood vessels, nerves, tendons, infection, skin bleaching, failure to improve symptoms, increased pain, and possible need for further injections or other intervention were discussed with the patient and the patient wishes to proceed with the steroid injection. Once consent was obtained, I sterilely prepped the area over the A1 naima of the flexor tendon sheath of the right thumb. I then injected the flexor tendon sheath with a combination of 1 mL of dexamethasone (4mg/ml), and 1% lidocaine. The patient tolerated the procedure well with no complications. If the patient continues to have locking and catching 4-6 weeks following this injection, they may call to schedule appointment to discuss alternative treatment options Follow-up prn Orders: Orders XR hand RT min 3V Today M79.641 - Pain in right hand Coding Level of Care Code New Pt Level 3 (38221) Diagnoses Trigger thumb, right thumb M65.311 CPT Codes Tendon Injection - Tendon Injection 1: 48510-Xeftmc Tendon Sheath Injection ([id number])
--- OUTSIDE RECORDS SUMMARY | 2025-03-21 12:02 | XMS_ITS | Patient Health Record ---
Author Organization [facility] Address [address] [facility] [address] [facility] [address] [place] [address] Care Team Providers Care Configurator Name Role Phone Shira Hester Primary Care Provider Unavailab Derrek Abraham Unavailable [phone] Reason For Referral No Information Medications Medication [...] Status Risk Notes Problem Carpal tunnel syndrome ([id number]) Carpal tunnel syndrome, bilateral upper limbs (G56.03) Active confirmed Problem Lesion of ulnar nerve (290486771) Lesion of ulnar nerve, bilateral upper limbs (G56.23) Active confirmed Plan Of Treatment No Information Insurance Providers Payer Name Payer Address Payer Phone Subscriber Number Group Number Insured Name Patient Relationship to Insured Coverage Start Date Coverage End Date [facility] [address] LEESA Guerrero [id number] [phone] [id number] Mark Altamirano Self - patient is the insured Medical (General) History Medical History History ICD Code htn hld kidney stones
== END 2025-03-21 11:00 | disposition home or self-care (01) ==
LOC: HO.HOS 10:29
PROVIDERS: PCP Physician Assistant Medical
DX: M65.311 Trigger thumb, right thumb (principal)
CPT/HCPCS: 20550; 99203

== ENCOUNTER → 2025-03-21 10:33 | Outpatient (BNV) | payer OTHER, SELFPAY | PROVIDERS: Visit Provider Radiology Diagnostic Radiology | DX: M79.641 Pain in right hand (principal) | CPT/HCPCS: 73130 ==